=== PATIENT | female | born 1945 | race Hispanic/Latino ===

== ENCOUNTER 2018-06-24 05:52 | Emergency (ER) | payer MEDICARE ==
[2018-06-24] MEDS ORDERED: NORCO 5/325 PO ONE (06:13)
--- NOTE | 2018-06-24 06:32 | Emergency Department Report ---
ED General Adult HPI - General Chief complaint: Pain General Stated complaint: RIGHT UPPER BACK PAIN Time Seen by Provider: 06/24/18 06:04 Source: patient, EMS Mode of arrival: Ambulatory Limitations: No Limitations - History of Present Illness Initial comments: Patient is a 73-year-old female who is presenting with increased pain in her neck right shoulder with radiation into the right arm. Patient states that she has had some radicular type pain in the past and she feels like to get worse over the last 4 hours. The patient denies any recent trauma. Patient states anytime she moves or turns her head she feels a shooting pain into her right upper extremity. Patient states she does smoke and does have a chronic cough that is worse now secondary to the pain she is experiencing in her neck and back. Patient denies any fever chills nausea vomiting diarrhea or cough cold or congestion that is outside of her baseline. Severity scale (0 -10): 8 Quality: aching, sharp Consistency: constant Worsens with: movement Associated Symptoms: cough. denies: confusion, diaphoresis, fever/chills, loss of appetite, malaise, nausea/vomiting, rash, seizure, shortness of breath, syncope - Related Data Home Medications Medication Instructions Recorded Confirmed Last Taken ALBUTEROL Inhaler (OR & NICU) 2 puff IH QID PRN 11/08/13 07/05/14 06/26/14 11:00 [ProAir HFA Inhaler] ALPRAZolam [Xanax TAB] 1 mg PO TID PRN 11/08/13 07/05/14 07/03/14 FLUoxetine HCL [PROzac] 40 mg PO BID 11/08/13 07/05/14 07/03/14 Metoprolol [Lopressor TAB] 50 mg PO BID 11/08/13 06/24/14 12/21/13 Glipizide/Metformin HCl 2 tab PO BID 12/21/13 07/05/14 07/03/14 [glipiZIDE-Metformin 2.5-250 mg] Tapentadol HCl [Nucynta ER] 1 tab PO TID PRN 06/24/14 07/05/14 07/03/14 Valsartan [Diovan] 320 mg PO QDAY 07/05/14 07/05/14 07/05/14 Previous Rx's Medication Instructions Recorded Last Taken Type Pantoprazole [Protonix TAB] 40 mg PO QDAY #30 tablet 12/24/13 07/03/14 Rx HYDROcodone/APAP 5-325 [[place] 1 each PO Q4HR PRN #12 tablet 06/24/18 Unknown Rx 5/325] methOCARBAMOL [Robaxin TAB] 500 mg PO Q6H PRN #15 tablet 06/24/18 Unknown Rx Allergies Allergy/AdvReac Type Severity Reaction Status Date / Time Cephalosporins Allergy Itching Verified 06/24/14 15:28 duloxetine HCl Allergy Itching Verified 06/24/14 15:28 [From Cymbalta] gabapentin Allergy Itching Verified 06/24/14 15:28 ketorolac tromethamine Allergy Itching Verified 06/24/14 15:28 [From Toradol] NSAIDS (Non-Steroidal Allergy Unknown Verified 06/24/14 15:28 Anti-Inflamma Penicillins Allergy Itching Verified 06/24/14 15:28 pregabalin [From Lyrica] Allergy Itching Verified 06/24/14 15:28 Sulfa (Sulfonamide Allergy Itching Verified 06/24/14 15:28 Antibiotics) sulfamethoxazole Allergy Itching Verified 06/24/14 15:28 [From Bactrim] trimethoprim [From Bactrim] Allergy Itching Verified 06/24/14 15:28 ED Review of Systems ROS: Stated complaint: RIGHT UPPER BACK PAIN Other details as noted in HPI Comment: All other systems reviewed and negative ED Past Medical Hx - Past Medical History Previous Medical History?: Yes Hx Hypertension: Yes Hx Diabetes: Yes Hx Arthritis: Yes Hx COPD: Yes (USES SUPPLEMENTAL O2 PRN) Hx HIV: No Additional medical history: brain aneurysm (sees Dr. Feliz), Deg. Disc Disease. Patient states that she's been referred to a roll or tape edge machine operator for a chronically elevated white blood cell count. Her workup for leukemia was negative. cholestrol - Surgical History Past Surgical History?: Yes Hx Cholecystectomy: Yes Additional Surgical History: hysterectomy (hx cervical CA),. right hip surgery - Social History Smoking Status: Current Every Day Smoker Substance Use Type: Prescribed - Medications Home Medications: Home Medications Medication Instructions Recorded Confirmed Last Taken Type ALBUTEROL Inhaler (OR & NICU) 2 puff IH QID PRN 11/08/13 07/05/14 06/26/14 11:00 History [ProAir HFA Inhaler] ALPRAZolam [Xanax TAB] 1 mg PO TID PRN 11/08/13 07/05/14 07/03/14 History FLUoxetine HCL [PROzac] 40 mg PO BID 11/08/13 07/05/14 07/03/14 History Metoprolol [Lopressor TAB] 50 mg PO BID 11/08/13 06/24/14 12/21/13 History Glipizide/Metformin HCl 2 tab PO BID 12/21/13 07/05/14 07/03/14 History [glipiZIDE-Metformin 2.5-250 mg] Pantoprazole [Protonix TAB] 40 mg PO QDAY #30 tablet 12/24/13 07/05/14 07/03/14 Rx Tapentadol HCl [Nucynta ER] 1 tab PO TID PRN 06/24/14 07/05/14 07/03/14 History Valsartan [Diovan] 320 mg PO QDAY 07/05/14 07/05/14 07/05/14 History HYDROcodone/APAP 5-325 [[place] 1 each PO Q4HR PRN #12 tablet 06/24/18 Unknown Rx 5/325] methOCARBAMOL [Robaxin TAB] 500 mg PO Q6H PRN #15 tablet 06/24/18 Unknown Rx ED Physical Exam - General Limitations: No Limitations General appearance: alert, in no apparent distress - Head Head exam: Present: atraumatic, normocephalic - Eye Eye exam: Present: normal appearance - ENT ENT exam: Present: mucous membranes moist - Neck Neck exam: Present: normal inspection, tenderness (patient has generalized tenderness to the neck as well as the right trapezius. Patient does wince when touching these areas.), full ROM. Absent: lymphadenopathy - Respiratory Respiratory exam: Present: normal lung sounds bilaterally, rhonchi. Absent: respiratory distress, wheezes, rales - Cardiovascular Cardiovascular Exam: Present: regular rate, normal rhythm, normal heart sounds. Absent: systolic murmur, diastolic murmur, rubs, gallop - GI/Abdominal GI/Abdominal exam: Present: soft, normal bowel sounds. Absent: distended, tenderness, guarding, rebound, rigid - Extremities Exam Extremities exam: Present: normal inspection - Back Exam Back exam: Present: normal inspection - Neurological Exam Neurological exam: Present: alert, oriented X3 - Psychiatric Psychiatric exam: Present: normal affect, normal mood - Skin Skin exam: Present: warm, dry, intact, normal color. Absent: rash ED Course Vital Signs 06/24/18 06/24/18 06/24/18 06:03 06:05 06:15 Temperature 97.3 F L Pulse Rate 100 H Respiratory 18 Rate Blood Pressure 181/91 181/91 184/88 O2 Sat by Pulse 96 98 93 Oximetry 06/24/18 06/24/18 06/24/18 06:58 06:59 07:01 Temperature Pulse Rate Respiratory 22 Rate Blood Pressure 184/88 184/88 O2 Sat by Pulse 93 95 95 Oximetry 06/24/18 06/24/18 06/24/18 07:15 07:31 07:45 Temperature Pulse Rate Respiratory Rate Blood Pressure 158/109 138/73 153/78 O2 Sat by Pulse 95 94 98 Oximetry ED Medical Decision Making - Radiology Data X-ray of the cervical spine shows that there is degenerative changes postsurgical changes present. There is heart wire transfixing C5 C7. There is bone submitted T2 from a prior kyphoplasty. No acute injuries found. Chest x-ray shows heart size is normal lungs expanded and do have fibrotic changes the lung base. There is no acute infiltrate or effusions or pneumothoraces. - Medical Decision Making She does report pain is improved and she will be discharged home. Patient given follow-up with orthopedics Critical care attestation.: If time is entered above; I have spent that time in minutes in the direct care of this critically ill patient, excluding procedure time. ED Disposition Clinical Impression: Cervical radiculopathy Disposition: - TO HOME OR SELFCARE Is pt being admited?: No Does the pt Need Aspirin: No Condition: Stable Instructions: Cervical Radiculopathy (ED) Referrals: NAKITA CLIFTON MD [Staff Physician] - 3-5 Days Time of Disposition: 08:16
--- NOTE | 2018-06-24 07:27 | XRay Report ---
FINAL REPORT PROCEDURE: XR CHEST ROUTINE 2V TECHNIQUE: PA and lateral chest radiographs were obtained. CPT 11792 HISTORY: cough COMPARISON: No prior studies are available for comparison. FINDINGS: Heart: Normal. Mediastinum/Vessels: Normal. Lungs/Pleural space: Lungs are expanded. There are fibrotic changes at the lung bases. There are no a cute infiltrates, effusions or pneumothoraces.. Bony thorax: There is sclerosis in the upper thoracic spine. Blastic metastasis not excluded.. Other: IMPRESSION: Heart size is normal.. Lungs are expanded. There are fibrotic changes at the lung bases. There are no acute infiltrates, eff usions or pneumothoraces.. There is sclerosis in the upper thoracic spine. Blastic metastasis not excluded..
--- NOTE | 2018-06-24 07:41 | XRay Report ---
FINAL REPORT PROCEDURE: XR SPINE CERVICAL 2-3V TECHNIQUE: Cervical spine radiographs, AP, lateral, and open-mouth odontoid views. CPT 20028 HISTORY: right upper extrem pain COMPARISON: No prior studies are available for comparison. FINDINGS: There is no acute fracture or malalignment. There are multilevel degenerative disc changes. There is multilevel bilateral facet hypertrophy. There is hardware transfixing C5, C6 and C7. There is bone cement in T2 which could be from prior the kyphoplasty or vertebroplasty. Soft tissues are unremarkable. IMPRESSION: There are degenerative and postsurgical changes. There is no acute bony abnormality.
[2018-06-24 07:51] VITALS: BP 153/78
== END 2018-06-24 08:28 | disposition home or self-care (01) ==
LOC: ED 05:52
DX: M54.12 Radiculopathy, cervical region (principal); M25.511 Pain in right shoulder; R05 Cough; I10 Essential (primary) hypertension; E11.9 Type 2 diabetes mellitus without complications; M19.90 Unspecified osteoarthritis, unspecified site; J44.9 Chronic obstructive pulmonary disease, unspecified; F17.200 Nicotine dependence, unspecified, uncomplicated; Z90.49 Acquired absence of other specified parts of digestive tract; Z79.84 Long term (current) use of oral hypoglycemic drugs; Z98.890 Other specified postprocedural states; Z88.1 Allergy status to other antibiotic agents; Z88.8 Allergy status to other drugs, medicaments and biological substances; Z88.6 Allergy status to analgesic agent; Z88.0 Allergy status to penicillin; Z88.2 Allergy status to sulfonamides
CPT/HCPCS: 71046; 72040

== ENCOUNTER 2018-09-26 13:30 | Outpatient (CLI) | payer MEDICARE ==
--- NOTE | 2018-09-26 15:11 | Vascular Lab Report ---
PROCEDURE: VL VENOUS DUPLEX LE LT TECHNIQUE: Duplex Doppler ultrasound examination of the left leg venous system HISTORY: Left lower extremity pain and swelling, DVT, lumbar SPONDYLOSIS WITH MYELOPATHY COMPARISONS: None FINDINGS: Normal compressibility, vascular patency, and augmentation are present diffusely throughout the visua lized portion of the deep veins. No abnormal intraluminal echoes are visualized to suggest deep vein thrombus. IMPRESSION: No sonographic evidence of left leg DVT This document is electronically signed by Clarke Priest MD., Sep 26 2018 03:08:51 PM ET
== END 2018-09-26 13:31 | disposition home or self-care (01) ==
LOC: VAS 13:30
PROVIDERS: ATTEND Orthopaedic Surgery Orthopaedic Trauma
DX: I82.402 Acute embolism and thrombosis of unspecified deep veins of left lower extremity (principal); M47.16 Other spondylosis with myelopathy, lumbar region; E78.00 Pure hypercholesterolemia, unspecified; I10 Essential (primary) hypertension; J44.9 Chronic obstructive pulmonary disease, unspecified; E11.9 Type 2 diabetes mellitus without complications; Z90.710 Acquired absence of both cervix and uterus

== ENCOUNTER 2021-12-13 16:04 | Emergency (ER) | payer MEDICARE | END 2021-12-14 19:00 | disposition left against medical advice (07) | LOC: ED 16:04 | DX: R07.81 Pleurodynia (principal); M54.9 Dorsalgia, unspecified; Z53.21 Procedure and treatment not carried out due to patient leaving prior to being seen by health care provider ==

== ENCOUNTER 2022-01-25 00:03 | Observation (INO) | payer MEDICARE ==
[2022-01-25 01:05] LABS: ABG Base Excess 1.7 mmol/L (-2.0-3.0); ABG HCO3 26.1 mmol/L (20.0-26.0); ABG Methemoglobin 0.5 % (0.0-1.5); ABG Oxygen Saturation 94.8 % (95.0-99.0); ABG PCO2 40.4 mm Hg; ABG PH 7.428 pH Units (7.350-7.450); ABG PO2 63.2 mm Hg (80.0-90.0)
--- NOTE | 2022-01-25 01:18 | XRay Report ---
CHEST 1 VIEW 01/24/2022 11:47 PM INDICATION / CLINICAL INFORMATION: Dyspnea. COMPARISON: 06/24/2018 FINDINGS: SUPPORT DEVICES: None. HEART / MEDIASTINUM: No significant abnormality. LUNGS / PLEURA: Mild focal lateral right basilar consolidation, which may represent atelectasis versu s mild pneumonia. No pneumothorax. ADDITIONAL FINDINGS: None IMPRESSION: 1. Mild focal lateral right basilar consolidation, which may represent atelectasis versus mild pneumo helen. Signer Name: Rivera Osborn MD Signed: 01/25/2022 1:14 AM Workstation Name: [id number]
[2022-01-25 01:21] LABS: Basophils # (Auto) 0.1 K/mm3 (0.0-0.1); Basophils % (Auto) 0.6 % (0.0-1.8); Eosinophils # (Auto) 0.1 K/mm3 (0.0-0.4); Eosinophils % (Auto) 0.6 % (0.0-4.3); Hematocrit 44.9 % (30.3-42.9); Hemoglobin 14.6 gm/dl (10.1-14.3); Lymphocytes # (Auto) 1.6 K/mm3 (1.2-5.4); Lymphocytes % (Auto) 10.3 % (13.4-35.0); Mean Corpuscular HGB Conc 33 % (30-34); Mean Corpuscular Volume 90 fl (79-97); Monocytes # (Auto) 0.9 K/mm3 (0.0-0.8); Monocytes % (Auto) 6.1 % (0.0-7.3); Platelet Count 270 K/mm3 (140-440); Red Blood Count 4.97 M/mm3 (3.65-5.03); Red Cell Distribution Width 14.2 % (13.2-15.2)
[2022-01-25 01:35] LABS: Alanine Aminotransferase 16 units/L (7-56); Blood Urea Nitrogen 15 mg/dL (7-17); Calcium 9.3 mg/dL (8.4-10.2); Hemolysis Index 14
[2022-01-25 02:03] LABS: BUN/Creatinine Ratio 30
[2022-01-25] MEDS ORDERED: MORPHINE 4 MG/1 ML INJ ONE (03:15)
[2022-01-25] MEDS ORDERED: ONDANSETRON 4 MG/2 ML INJ ONE (03:16)
--- NOTE | 2022-01-25 04:02 | Emergency Department Report ---
ED Shortness of Breath HPI - General Chief Complaint: Dyspnea/Respdistress Stated Complaint: SOB Time Seen by Provider: 01/25/22 00:26 Source: EMS Mode of arrival: Stretcher Limitations: No Limitations - History of Present Illness Initial Comments: Patient is a 76-year-old female presenting the ED with complaint of shortness of breath and pleuritic pain involving the right mid/lower chest. Symptoms began several days ago. She reports history of pleurisy in the past. Symptoms worsened with movement and coughing. - Related Data Home Medications Medication Instructions Recorded Confirmed Last Taken ALPRAZolam [Xanax TAB] 1 mg PO TID PRN 11/08/13 07/05/14 07/03/14 Albuterol Mdi (or & Nicu Only) 2 puff IH QID PRN 11/08/13 07/05/14 06/26/14 11:00 [ProAir HFA Inhaler] FLUoxetine HCL [PROzac] 40 mg PO BID 11/08/13 07/05/14 07/03/14 Metoprolol [Lopressor TAB] 50 mg PO BID 11/08/13 06/24/14 12/21/13 Glipizide/Metformin HCl 2 tab PO BID 12/21/13 07/05/14 07/03/14 [glipiZIDE-Metformin 2.5-250 mg] Tapentadol HCl [Nucynta ER] 1 tab PO TID PRN 06/24/14 07/05/14 07/03/14 Valsartan [Diovan] 320 mg PO QDAY 07/05/14 07/05/14 07/05/14 Previous Rx's Medication Instructions Recorded Last Taken Type Pantoprazole [Protonix TAB] 40 mg PO QDAY #30 tablet 12/24/13 07/03/14 Rx HYDROcodone/APAP 5-325 [[place] 1 each PO Q4HR PRN #12 tablet 06/24/18 Unknown Rx 5/325] methOCARBAMOL [Robaxin TAB] 500 mg PO Q6H PRN #15 tablet 06/24/18 Unknown Rx Allergies Allergy/AdvReac Type Severity Reaction Status Date / Time Cephalosporins Allergy Itching Verified 06/24/14 15:28 duloxetine HCl Allergy Itching Verified 06/24/14 15:28 [From Cymbalta] gabapentin Allergy Itching Verified 06/24/14 15:28 ketorolac tromethamine Allergy Itching Verified 06/24/14 15:28 [From Toradol] NSAIDS (Non-Steroidal Allergy Unknown Verified 06/24/14 15:28 Anti-Inflamma Penicillins Allergy Itching Verified 06/24/14 15:28 pregabalin [From Lyrica] Allergy Itching Verified 06/24/14 15:28 Sulfa (Sulfonamide Allergy Itching Verified 06/24/14 15:28 Antibiotics) sulfamethoxazole Allergy Itching Verified 06/24/14 15:28 [From Bactrim] trimethoprim [From Bactrim] Allergy Itching Verified 06/24/14 15:28 ED Review of Systems ROS: Stated complaint: SOB Other details as noted in HPI Constitutional: denies: chills, fever Respiratory: cough, shortness of breath Cardiovascular: chest pain (Pleuritic) Endocrine: no symptoms reported Gastrointestinal: denies: abdominal pain, nausea, diarrhea Musculoskeletal: denies: back pain, joint swelling, arthralgia Skin: denies: rash, lesions Neurological: denies: headache, weakness, paresthesias Psychiatric: denies: anxiety, depression ED Past Medical Hx - Past Medical History Previous Medical History?: Yes Hx Hypertension: Yes Hx Diabetes: Yes Hx Arthritis: Yes Hx COPD: Yes (USES SUPPLEMENTAL O2 PRN) Hx HIV: No Additional medical history: brain aneurysm (sees Dr. Feliz), Deg. Disc Disease. 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 Her workup for leukemia was negative. cholestrol - Surgical History Past Surgical History?: Yes Hx Cholecystectomy: Yes Additional Surgical History: hysterectomy (hx cervical CA),. right hip surgery - Social History Smoking Status: Current Every Day Smoker - Medications Home Medications: Home Medications Medication Instructions Recorded Confirmed Last Taken Type ALPRAZolam [Xanax TAB] 1 mg PO TID PRN 11/08/13 07/05/14 07/03/14 History Albuterol Mdi (or & Nicu Only) 2 puff IH QID PRN 11/08/13 07/05/14 06/26/14 11:00 History [ProAir HFA Inhaler] FLUoxetine HCL [PROzac] 40 mg PO BID 11/08/13 07/05/14 07/03/14 History Metoprolol [Lopressor TAB] 50 mg PO BID 11/08/13 06/24/14 12/21/13 History Glipizide/Metformin HCl 2 tab PO BID 12/21/13 07/05/14 07/03/14 History [glipiZIDE-Metformin 2.5-250 mg] Pantoprazole [Protonix TAB] 40 mg PO QDAY #30 tablet 12/24/13 07/05/14 07/03/14 Rx Tapentadol HCl [Nucynta ER] 1 tab PO TID PRN 06/24/14 07/05/14 07/03/14 History Valsartan [Diovan] 320 mg PO QDAY 07/05/14 07/05/14 07/05/14 History HYDROcodone/APAP 5-325 [[place] 1 each PO Q4HR PRN #12 tablet 06/24/18 Unknown Rx 5/325] methOCARBAMOL [Robaxin TAB] 500 mg PO Q6H PRN #15 tablet 06/24/18 Unknown Rx ED Physical Exam - General Limitations: No Limitations General appearance: alert, in no apparent distress - Head Head exam: Present: atraumatic, normocephalic - Respiratory Respiratory exam: Present: rales (Right lower lobe). Absent: respiratory distress - Cardiovascular Cardiovascular Exam: Present: regular rate, normal rhythm, normal heart sounds - GI/Abdominal GI/Abdominal exam: Present: soft. Absent: distended, tenderness - Rectal Rectal exam: Present: deferred - Neurological Exam Neurological exam: Present: alert, oriented X3 - Psychiatric Psychiatric exam: Present: normal affect, normal mood - Skin Skin exam: Present: warm, dry, intact, normal color ED Course Vital Signs 01/25/22 01/25/22 00:13 01:02 Temperature 98.6 F Pulse Rate 96 H 94 H Respiratory 18 20 Rate Blood Pressure 150/76 Blood Pressure 133/71 [Left] O2 Sat by Pulse 94 93 Oximetry ED Medical Decision Making - Lab Data Result diagrams: 01/25/22 00:59 01/25/22 00:59 - Medical Decision Making White blood cell count 15. Chest x-ray shows right basilar consolidation. ABG shows normal pH with pO2 of 63 on FiO2 of 32. Suspect likely community-acquired pneumonia causing acute hypoxic respiratory failure. IV Levaquin ordered. Patient currently maintaining sats of 96 to 98% on 3 L nasal cannula. Will admit to hospitalist. Critical care attestation.: If time is entered above; I have spent that time in minutes in the direct care of this critically ill patient, excluding procedure time. ED Disposition Clinical Impression: Community acquired pneumonia, Acute respiratory failure with hypoxia Disposition: ADMITTED INPATIENT Is pt being admited?: Yes Condition: Stable Instructions: Bacterial Pneumonia (ED)
[2022-01-25] MEDS ORDERED: ONDANSETRON 4 MG/2 ML INJ IV ONE (04:16)
[2022-01-25] MEDS ORDERED: MORPHINE 4 MG/1 ML INJ IV ONE (04:16)
[2022-01-25] MEDS ORDERED: ALBUTEROL 2.5 MG/3 ML NEBU IH PRN (04:44)
[2022-01-25] MEDS ORDERED: MORPHINE 2 MG/1 ML INJ IV PRN (04:44)
[2022-01-25] MEDS ORDERED: ONDANSETRON 4 MG/2 ML INJ IV PRN (04:44)
[2022-01-25] MEDS ORDERED: MORPHINE 4 MG/1 ML INJ IV PRN (04:44)
[2022-01-25] MEDS ORDERED: DEXTROSE 50% IN WATER (25GM) 50 ML SYRINGE IV ONE (04:44)
[2022-01-25] MEDS ORDERED: ACETAMINOPHEN 325 MG TAB PO PRN (04:44)
[2022-01-25] MEDS ORDERED: DEXTROSE 50% IN WATER (25GM) 50 ML SYRINGE IV PRN (04:44)
[2022-01-25] MEDS ORDERED: ALBUTEROL 8.5 GM MDI INHALATION IH PRN (04:47)
[2022-01-25] MEDS ORDERED: NICOTINE 14 MG/24 HR PATCH TD ONE (04:48)
--- NOTE | 2022-01-25 04:53 | History and Physical Report ---
History of Present Illness Date of examination: 01/25/22 Date of admission: 01/25/22 Chief complaint: Dyspnea Respiratory distress History of present illness: 76-year-old female presenting the ED with complaint of shortness of breath and pleuritic pain involving the right mid/lower chest. Symptoms began several days ago. She reports history of pleurisy in the past. Symptoms worsened with movement and coughing. In the emergency room White blood cell count 15. Chest x-ray shows right basilar consolidation. ABG shows normal pH with pO2 of 63 on FiO2 of 32. S uspect likely community-acquired pneumonia causing acute hypoxic respiratory failure. IV Levaquin ordered. Patient currently maintaining sats of 96 to 98% on 3 L nasal cannula. Past History Past Medical History: arthritis, COPD, diabetes, hypertension, other (brain aneurysm (sees Dr. Feliz), Deg. Disc Disease. Patient states that she's been referred to a glueline worker for a chronically elevated white blood cell count. Her workup for leukemia was negative. cholestrol) Past Surgical History: cholecystectomy, Other (hysterectomy (hx cervical CA),. right hip surgery) Social history: smoking Family history: hypertension Medications and Allergies Allergies Allergy/AdvReac Type Severity Reaction Status Date / Time Cephalosporins Allergy Itching Verified 06/24/14 15:28 duloxetine HCl Allergy Itching Verified 06/24/14 15:28 [From Cymbalta] gabapentin Allergy Itching Verified 06/24/14 15:28 ketorolac tromethamine Allergy Itching Verified 06/24/14 15:28 [From Toradol] NSAIDS (Non-Steroidal Allergy Unknown Verified 06/24/14 15:28 Anti-Inflamma Penicillins Allergy Itching Verified 06/24/14 15:28 pregabalin [From Lyrica] Allergy Itching Verified 06/24/14 15:28 Sulfa (Sulfonamide Allergy Itching Verified 06/24/14 15:28 Antibiotics) sulfamethoxazole Allergy Itching Verified 06/24/14 15:28 [From Bactrim] trimethoprim [From Bactrim] Allergy Itching Verified 06/24/14 15:28 Home Medications Medication Instructions Recorded Confirmed Last Taken Type ALPRAZolam [Xanax TAB] 1 mg PO TID PRN 11/08/13 07/05/14 07/03/14 History Albuterol Mdi (or & Nicu Only) 2 puff IH QID PRN 11/08/13 07/05/14 06/26/14 11:00 History [ProAir HFA Inhaler] FLUoxetine HCL [PROzac] 40 mg PO BID 11/08/13 07/05/14 07/03/14 History Metoprolol [Lopressor TAB] 50 mg PO BID 11/08/13 06/24/14 12/21/13 History Glipizide/Metformin HCl 2 tab PO BID 12/21/13 07/05/14 07/03/14 History [glipiZIDE-Metformin 2.5-250 mg] Pantoprazole [Protonix TAB] 40 mg PO QDAY #30 tablet 12/24/13 07/05/14 07/03/14 Rx Tapentadol HCl [Nucynta ER] 1 tab PO TID PRN 06/24/14 07/05/14 07/03/14 History Valsartan [Diovan] 320 mg PO QDAY 07/05/14 07/05/14 07/05/14 History HYDROcodone/APAP 5-325 [[place] 1 each PO Q4HR PRN #12 tablet 06/24/18 Unknown Rx 5/325] methOCARBAMOL [Robaxin TAB] 500 mg PO Q6H PRN #15 tablet 06/24/18 Unknown Rx Review of Systems All systems: negative Cardiovascular: chest pain, shortness of breath, dyspnea on exertion Respiratory: cough, pain on inspiration Exam - Constitutional Vitals: Temp Pulse Resp BP Pulse Ox 98.6 F 94 H 20 133/71 93 01/25/22 00:13 01/25/22 01:02 01/25/22 01:02 01/25/22 01:02 01/25/22 01:02 General appearance: Present: no acute distress, well-nourished - EENT Eyes: Present: PERRL ENT: hearing intact, clear oral mucosa - Neck Neck: Present: supple, normal ROM - Respiratory Respiratory effort: normal Respiratory: bilateral: diminished - Cardiovascular Heart Sounds: Present: S1 & S2. Absent: rub, click - Extremities Extremities: pulses symmetrical, No edema Peripheral Pulses: within normal limits - Abdominal General gastrointestinal: Present: soft, non-tender, non-distended, normal bowel sounds Female genitourinary: Present: normal - Integumentary Integumentary: Present: clear, warm, dry - Musculoskeletal Musculoskeletal: gait normal, strength equal bilaterally - Psychiatric Psychiatric: appropriate mood/affect, intact judgment & insight - Neurologic Neurologic: CNII-XII intact, moves all extremities HEART Score - HEART Score Troponin: Troponin T < 0.010 ng/mL (0.00-0.029) 01/25/22 00:59 Results - Labs CBC & Chem 7: 01/25/22 00:59 01/25/22 00:59 Labs: Laboratory Last Values WBC 15.5 K/mm3 (4.5-11.0) H 01/25/22 00:59 RBC 4.97 M/mm3 (3.65-5.03) 01/25/22 00:59 Hgb 14.6 gm/dl (10.1-14.3) H 01/25/22 00:59 Hct 44.9 % (30.3-42.9) H 01/25/22 00:59 MCV 90 fl (79-97) 01/25/22 00:59 MCH 29 pg (28-32) 01/25/22 00:59 MCHC 33 % (30-34) 01/25/22 00:59 RDW 14.2 % (13.2-15.2) 01/25/22 00:59 Plt Count 270 K/mm3 (140-440) 01/25/22 00:59 Lymph % (Auto) 10.3 % (13.4-35.0) L 01/25/22 00:59 Gordon % (Auto) 6.1 % (0.0-7.3) 01/25/22 00:59 Eos % (Auto) 0.6 % (0.0-4.3) 01/25/22 00:59 Baso % (Auto) 0.6 % (0.0-1.8) 01/25/22 00:59 Lymph # (Auto) 1.6 K/mm3 (1.2-5.4) 01/25/22 00:59 Gordon # (Auto) 0.9 K/mm3 (0.0-0.8) H 01/25/22 00:59 Eos # (Auto) 0.1 K/mm3 (0.0-0.4) 01/25/22 00:59 Baso # (Auto) 0.1 K/mm3 (0.0-0.1) 01/25/22 00:59 Seg Neutrophils % 82.4 % (40.0-70.0) H 01/25/22 00:59 Seg Neutrophils # 12.8 K/mm3 (1.8-7.7) H 01/25/22 00:59 ABG pH 7.428 pH Units (7.350-7.450) 01/25/22 00:50 ABG pCO2 40.4 mm Hg 01/25/22 00:50 ABG pO2 63.2 mm Hg (80.0-90.0) L 01/25/22 00:50 ABG HCO3 26.1 mmol/L (20.0-26.0) H 01/25/22 00:50 ABG O2 Saturation 94.8 % (95.0-99.0) L 01/25/22 00:50 ABG O2 Content 19.0 (0.0-44) 01/25/22 00:50 ABG Base Excess 1.7 mmol/L (-2.0-3.0) 01/25/22 00:50 ABG Hemoglobin 14.7 gm/dl (12.0-16.0) 01/25/22 00:50 ABG Carboxyhemoglobin 2.4 % (0.0-5.0) 01/25/22 00:50 ABG Methemoglobin 0.5 % (0.0-1.5) 01/25/22 00:50 Oxyhemoglobin 92.0 % (95.0-99.0) L 01/25/22 00:50 FiO2 32 % 01/25/22 00:50 Sodium 140 mmol/L (137-145) 01/25/22 00:59 Potassium 3.4 mmol/L (3.6-5.0) L 01/25/22 00:59 Chloride 102.0 mmol/L (98-107) 01/25/22 00:59 Carbon Dioxide 26 mmol/L (22-30) 01/25/22 00:59 Anion Gap 15 mmol/L 01/25/22 00:59 BUN 15 mg/dL (7-17) 01/25/22 00:59 Creatinine 0.5 mg/dL (0.6-1.2) L 01/25/22 00:59 Estimated GFR > 60 ml/min 01/25/22 00:59 BUN/Creatinine Ratio 30 % 01/25/22 00:59 Glucose 46 mg/dL (65-100) L 01/25/22 00:59 Calcium 9.3 mg/dL (8.4-10.2) 01/25/22 00:59 Total Bilirubin 0.50 mg/dL (0.1-1.2) 01/25/22 00:59 AST 17 units/L (5-40) 01/25/22 00:59 ALT 16 units/L (7-56) 01/25/22 00:59 Alkaline Phosphatase 96 units/L (35-129) 01/25/22 00:59 Troponin T < 0.010 ng/mL (0.00-0.029) 01/25/22 00:59 NT-Pro-B Natriuret Pep 160.4 pg/mL (0-900) 01/25/22 00:59 Total Protein 6.4 g/dL (6.3-8.2) 01/25/22 00:59 Albumin 4.0 g/dL (3.9-5) 01/25/22 00:59 Albumin/Globulin Ratio 1.7 % 01/25/22 00:59 - Imaging and Cardiology Chest x-ray: report reviewed Assessment and Plan VTE prophylaxis?: Mechanical Plan of care discussed with patient/family: Yes - Patient Problems (1) Acute respiratory failure with hypoxia Status: Acute Plan to address problem: Admit the patient to the medical telemetry. Oxygen per nasal cannula compensation specialist pulmonate. DuoNeb nebulizer every 4 hours. Levaquin 750 mg p.o. daily. Blood cultures sputum culture. Consult pulmonary if needed (2) Community acquired pneumonia Status: Acute Plan to address problem: Oxygen per nasal cannula compensation specialist pulmonate. DuoNeb nebulizer every 4 hours. Levaquin 750 mg p.o. daily. Blood cultures sputum culture. Consult pulmonary if needed (3) Tobacco abuse Status: Acute Plan to address problem: We counseled the patient regarding quitting smoking. We put the patient on nicotine patch (4) COPD (chronic obstructive pulmonary disease) Status: Acute Plan to address problem: Oxygen per nasal cannula compensation specialist pulmonate. DuoNeb nebulizer every 4 hours. Albuterol via nebulizer every 4 hours as needed (5) Diabetes Status: Acute Plan to address problem: Accu-Chek before meals and at bedtime with Humalog moderate dose coverage. Diabetic education. Recheck BMP in the morning (6) Arthritis Status: Acute Plan to address problem: Tylenol 650 mg p.o. every 6 hours as needed. Morphine 2 mg IV every 4 hours as needed . We continue the home medication (7) Dysphagia Status: Acute Plan to address problem: Stable. We continue the home medication. We will monitor the patient closely (8) DVT prophylaxis Status: Acute
[2022-01-25] MEDS ORDERED: POTASSIUM CHLORIDE ER 20 MEQ TAB PO SCH (08:00)
[2022-01-25] MEDS: IPRATROPIUM/ALBUTEROL SULFATE 3 ML AMPUL.NEB IH SCH ×3 (09:29→20:52)
[2022-01-25] MEDS ORDERED: NON-FORMULARY EACH (Valsartan [Diovan] 320 MG Tablet) PO SCH (10:00)
[2022-01-25] MEDS ORDERED: NON-FORMULARY EACH (Fluoxetine Hcl [Prozac] 40 MG Capsule) PO SCH (10:00)
[2022-01-25] MEDS ORDERED: FAMOTIDINE 20 MG TAB PO SCH (10:00)
[2022-01-25] MEDS: INSULIN LISPRO 100 UNIT/ML SUB-Q SCH ×4 (10:46→22:11)
[2022-01-25] MEDS: FLUoxetine 20 MG CAP PO SCH ×2 (13:45→22:41)
[2022-01-25] MEDS: METOPROLOL TARTRATE 25 MG TAB PO SCH ×2 (13:45→22:42)
[2022-01-25] MEDS: levoFLOXacin 750 MG TAB PO SCH (13:45)
[2022-01-25] MEDS: VALSARTAN 160MG TAB PO SCH (13:46)
[2022-01-25] MEDS: PANTOPRAZOLE 40 MG TAB PO SCH (13:46)
[2022-01-25] MEDS: ALPRAZolam 1 MG TAB PO PRN ×2 (13:54→22:43)
--- NOTE | 2022-01-25 18:17 | Event Note ---
Date: 01/25/22 Patient was evaluated this morning, she was found to be hemodynamically stable. #Acute hypoxic respiratory failureresolved - etiology: Possibly secondary to community-acquired pneumonia versus unknown etiology - baseline oxygen requirements: Room air - supplemental oxygen: 3 L nasal cannula - Continue protocol: continue pulse oximetry, wean oxygen as tolerated, ordered incentive spirometry and educated patient on how to use it and its importance. - continue to monitor #Worsening pleuritic chest pain Ordering CT chest with contrast to evaluate for other etiology. Patient endorses following up with multiple providers (at different settings) to achieve symptomatic relief but has been unsuccessful. #Leukocytosis WBC 15.5 Possibly secondary to pneumonia versus being associated with pleuritic chest pain. Continue to monitor. #Community-acquired pneumonia secondary to gram-negative versus atypical organisms Chest x-ray revealing right lower lobe consolidation that could be secondary to pneumonia versus atelectasis Continue p.o. Levaquin 750 mg daily for 5 days (completes 01/29/2022) Coronavirus PCR unremarkable #Hypokalemia Potassium 3.4. Repleted. Monitor with repeat BMP in the a.m. #History of COPD Patient endorses no longer requiring daily use of supplemental oxygen at home. Continue DuoNebs every 6 hours and albuterol nebs every 6 hours as needed. #Insulin dependent type II diabetes mellitus - hemoglobin A1c: Unknown - home regimen: Unknown - current regimen: Moderate SSI - blood glucose goal 140-180 while inpatient - continue to monitor #Dysphagiaruled out Patient seen at bedside eating regular solid diet without any difficulties. Patient denies dysphagia. #History of arthritis Continue analgesics as needed #Tobacco dependence #Tobacco/Smoking cessation counseling - Counseled patient about the importance of smoking cessation and the possible sequelae as a result of continued tobacco consumption. The patient expresses understanding. Ordering nicotine patch 1 mg daily. -Time: +15 mins #Coordination of CARE time: 30 minutes. Total visit time equals 30 or more minutes with greater than 50% spent [id number] on coordination of care and counseling. #Advanced care planning -Disease education conducted, care plan discussed, diagnoses discussed, prognosis discussed, and patient acknowledges understanding with care plan -Time: +30 min
--- NOTE | 2022-01-26 00:29 | Cat Scan Report ---
CT CHEST WITH CONTRAST INDICATION / CLINICAL INFORMATION: Evaluate progressive R chest pleuritic pain 60ml of [id number] . TECHNIQUE: Axial CT images were obtained through the chest after IV contrast. All CT scans at this [facility] are performed using CT dose reduction for ALARA by means of automated exposure control. COMPARISON: Chest radiograph 01/25/2022. CT chest 1214 FINDINGS: HEART: No significant abnormality. CORONARY ARTERY CALCIFICATION: Present -- Severe. THORACIC AORTA: Severe atherosclerotic calcification without acute abnormality. LYMPH NODES: No pathologic thoracic lymphadenopathy. PLEURA: Small layering right-sided pleural effusion. No significant left pleural effusion. No pneumot horax. LUNGS: Subsegmental atelectasis within the right middle lobe and right lung base adjacent to the righ t pleural effusion. Minimal left basilar microatelectasis. The lungs are otherwise clear without evid ence for pneumonia or pulmonary edema. UPPER ABDOMEN: Prior cholecystectomy. Simple left renal cysts. Indeterminate right lateral renal isaías ical complex cyst versus mass measuring 2.5 cm (series 2, image 123 and series 601, image 84). SKELETAL STRUCTURES: Stable T2 vertebral plasty changes and chronic mild T5 and T6 compression deform ities. No acute fracture, dislocation or destructive osseous process. IMPRESSION: 1. Small layering right-sided pleural effusion and bibasilar subsegmental atelectasis. No other acute chest process. 2. Indeterminate right lateral renal cortical complex cyst versus mass. Short-term follow-up renal ul trasound recommended for further evaluation. 3. Other chronic and postoperative incidental findings, as detailed above. Signer Name: Rivera Osborn MD Signed: 01/26/2022 12:24 AM Workstation Name: [email or web address]
[2022-01-26] MEDS: IPRATROPIUM/ALBUTEROL SULFATE 3 ML AMPUL.NEB IH SCH ×2 (01:58→10:13)
[2022-01-26 06:15] LABS: Basophils % (Auto) 0.2 % (0.0-1.8); Eosinophils # (Auto) 0.1 K/mm3 (0.0-0.4); Hematocrit 40.7 % (30.3-42.9); Hemoglobin 13.2 gm/dl (10.1-14.3); Lymphocytes # (Auto) 1.4 K/mm3 (1.2-5.4); Lymphocytes % (Auto) 9.7 % (13.4-35.0); Mean Corpuscular HGB Conc 33 % (30-34); Mean Corpuscular Volume 92 fl (79-97); Monocytes # (Auto) 1.1 K/mm3 (0.0-0.8); Monocytes % (Auto) 7.8 % (0.0-7.3); Platelet Count 244 K/mm3 (140-440); Red Blood Count 4.45 M/mm3 (3.65-5.03); Red Cell Distribution Width 14.3 % (13.2-15.2)
[2022-01-26] MEDS: INSULIN LISPRO 100 UNIT/ML SUB-Q SCH (08:25)
[2022-01-26] MEDS: NICOTINE 21 MG/24 HR PATCH TD SCH ×2 (08:26→10:00)
[2022-01-26] MEDS: VALSARTAN 160MG TAB PO SCH ×2 (08:26→10:00)
[2022-01-26] MEDS: METOPROLOL TARTRATE 25 MG TAB PO SCH ×2 (08:29→10:00)
[2022-01-26] MEDS: FLUoxetine 20 MG CAP PO SCH ×2 (08:29→10:00)
[2022-01-26] MEDS: PANTOPRAZOLE 40 MG TAB PO SCH ×2 (08:29→10:00)
[2022-01-26] MEDS: levoFLOXacin 750 MG TAB PO SCH ×2 (08:29→10:00)
[2022-01-26] MEDS ORDERED: HYDROcodone/ACETAMINOPHEN 5-325 MG TAB PO PRN (08:38)
--- NOTE | 2022-01-26 10:37 | Discharge Summary ---
Providers - Providers Date of Admission: 01/25/22 04:45 Date of discharge: 01/26/22 Attending physician: MANINDER ARAMBULA MD 01/25/22 04:45 Consult to Dietitian/Nutrition [CONS] Routine Physician Instructions: Reason For Exam: Reason for Consult: Diet education Primary care physician: BAILEY FRAZIER MD Hospitalization Reason for admission: Acute hypoxic respiratory failure Condition: Stable Pertinent studies: Reviewed. Procedures: None. Hospital course: Patient is a 76-year-old female with past medical history of [id number] type 2 diabetes mellitus, hypertension, and COPD who presented to the ED with complaints of shortness of breath and right pleuritic chest pain involving her mid right/lower chest. Patient describes symptoms as being present for approximately 2 weeks. She endorses a history of pleurisy in the past. Patient endorses that her symptoms are worsened with movement and cough. Patient underwent chest x-ray that was found to be unremarkable. Patient underwent CT chest with contrast (01/25/2022) revealing "small layering right-sided pleural effusion and bibasilar subsegmental atelectasis". Patient underwent CT angio chest revealing subacute rib fractures and unremarkable for acute pulmonary emboli. Patient was counseled on how to use incentive spirometry. Patient will be discharging home on analgesics as needed. Patient is medically clear for discharge. Disposition: 01 HOME / SELF CARE / HOMELESS Final Discharge Diagnosis (Prints w/discharge instructions): Acute hypoxic respiratory failureresolved, worsening pleuritic chest pain, leukocytosis, community-acquired pneumonia secondary to gram-negative versus atypical organismsruled out, hypokalemia, history of COPD, insulin-dependent type 2 diabetes mellitus, dysphagiaruled out, history of arthritis, tobacco dependence. Time spent for discharge: 45 min Core Measure Documentation - Palliative Care Palliative Care/ Comfort Measures: Not Applicable - Core Measures Any of the following diagnoses?: none Exam - Constitutional Vitals: Temp Pulse Resp BP Pulse Ox 97.5 F L 91 H 19 112/52 90 01/25/22 21:40 01/26/22 08:00 01/26/22 08:00 01/25/22 22:42 01/26/22 10:00 General appearance: Present: no acute distress, well-nourished - EENT Eyes: Present: PERRL, EOM intact ENT: hearing intact, clear oral mucosa, dentition normal - Neck Neck: Present: supple, normal ROM - Respiratory Respiratory effort: normal Respiratory: bilateral: diminished - Cardiovascular Rhythm: regular Heart Sounds: Present: S1 & S2 - Extremities Extremities: no ischemia, pulses intact, pulses symmetrical, No edema, normal temperature, normal color Peripheral Pulses: within normal limits - Abdominal General gastrointestinal: Present: soft, non-tender, non-distended, normal bowel sounds Female genitourinary: Present: deferred - Rectal Rectal Exam: deferred - Integumentary Integumentary: Present: clear, warm, dry - Musculoskeletal Musculoskeletal: strength equal bilaterally, other (Significant tenderness of the right lateral chest wall) - Psychiatric Psychiatric: appropriate mood/affect, cooperative, other (Decreased short-term memory) - Neurologic Neurologic: CNII-XII intact, moves all extremities - Allied Health Allied health notes reviewed: nursing Plan Activity: advance as tolerated Diet: low salt, diabetic Additional Instructions: Patient is a 76-year-old female with past medical history of gdm-grbmfia-whlufbqve type 2 diabetes mellitus, hypertension, and COPD who presented to the ED with complaints of shortness of breath and right pleuritic chest pain involving her mid right/lower chest. Patient describes symptoms as being present for approximately 2 weeks. She endorses a history of pleurisy in the past. Patient endorses that her symptoms are worsened with movement and cough. Patient underwent chest x-ray that was found to be unremarkable. Patient underwent CT chest with contrast (01/25/2022) revealing "small layering right-sided pleural effusion and bibasilar subsegmental atelectasis". Patient underwent CT angio chest revealing subacute rib fractures and unremarkable for acute pulmonary emboli. Patient was counseled on how to use incentive spirometry. Patient will be discharging home on analgesics as needed. Patient is medically clear for discharge. Care Plan Goals: Patient is medically clear for discharge. Assessment: Patient is a 76-year-old female with past medical history of non-insulin- dependent type 2 diabetes mellitus, hypertension, and COPD who presented to the ED with complaints of shortness of breath and right pleuritic chest pain involving her mid right/lower chest. Patient describes symptoms as being present for approximately 2 weeks. She endorses a history of pleurisy in the past. Patient endorses that her symptoms are worsened with movement and cough. Patient underwent chest x-ray that was found to be unremarkable. Patient underwent CT chest with contrast (01/25/2022) revealing "small layering right- sided pleural effusion and bibasilar subsegmental atelectasis". Patient underwent CT angio chest revealing subacute rib fractures and unremarkable for acute pulmonary emboli. Patient was counseled on how to use incentive spirometry. Patient will be discharging home on analgesics as needed. Patient is medically clear for discharge. Follow up with: BAILEY FRAZIER MD [Primary Care Provider] - 7 Days Prescriptions: Varenicline Tartrate [Chantix] 1 each PO DAILY #1 pkg HYDROcodone/APAP 5-325 [[place] 5-325 mg TAB] 1 each PO Q6H PRN #15 tablet PRN Reason: Pain, Moderate (4-6)
[2022-01-26 11:05] VITALS: BP 107/63
--- NOTE | 2022-01-26 13:12 | Cat Scan Report ---
CTA CHEST WITH CONTRAST INDICATION / CLINICAL INFORMATION: Concern for acute PE. TECHNIQUE: Axial CT images were obtained through the chest after injection of 60 cc of Omnipaque 350 IV contrast. 3 plane MIP and/or 3D reconstructions were produced. All CT scans at this location are p erformed using CT dose reduction for ALARA by means of automated exposure control. COMPARISON: CT chest with contrast 01/25/2022 FINDINGS: PULMONARY EMBOLUS: None. THORACIC AORTA: No significant abnormality. HEART: No significant abnormality. CORONARY ARTERY CALCIFICATION: Present -- Severe. MEDIASTINUM / EDITH: Small hiatal hernia. No mediastinal mass or adenopathy. PLEURA: Small layering right pleural effusion is unchanged. No pneumothorax. LUNGS: No acute air space or interstitial disease. Mild atelectatic changes are noted at the right francoise ng base. ADDITIONAL FINDINGS: None. UPPER ABDOMEN: No acute findings. SKELETAL STRUCTURES: Acute appearing nondisplaced rib fractures are identified on the right side at l evels 4, 5, 6 and 9. Subacute healing rib fractures are identified anterolaterally on the left side a t levels 3 and 4. Mild thoracic spondylosis. Kyphoplasty changes at T3 appear stable. IMPRESSION: 1. No CT evidence for pulmonary embolism. 2. Bilateral rib fractures of varying ages as described. Right rib fractures appear rather acute. 3. Small right pleural effusion. 4. Small hiatal hernia. Signer Name: Lopez Arnett Jr, MD Signed: 01/26/2022 1:08 PM Workstation Name: [id number]
== END 2022-01-26 14:15 | disposition home or self-care (01) ==
LOC: ED 00:03 → INTOOBSV 04:45 → 3A 04:45
PROVIDERS: ADMIT Hospitalist; ATTEND Student in an Organized Health Care Education/Training Program
DX: J96.01 Acute respiratory failure with hypoxia (principal); Z20.822 Contact with and (suspected) exposure to COVID-19; J18.9 Pneumonia, unspecified organism; J44.9 Chronic obstructive pulmonary disease, unspecified; I10 Essential (primary) hypertension; E11.9 Type 2 diabetes mellitus without complications; M19.90 Unspecified osteoarthritis, unspecified site; R13.10 Dysphagia, unspecified; R07.89 Other chest pain; F17.200 Nicotine dependence, unspecified, uncomplicated; D72.829 Elevated white blood cell count, unspecified; E87.6 Hypokalemia; Z79.4 Long term (current) use of insulin; Z79.899 Other long term (current) drug therapy; Z98.890 Other specified postprocedural states
CPT/HCPCS: 36415; 71045; 71260; 71275; 80048; 80053; 82803; 82962; 83880; 84145; 84484; 85025; 94640; 96374; 96375; 96376; 99284; G0378; J2270; J2405; J3490; Q9967; U0003; 99285; J1815